=== PATIENT | male | born 1965 | race Two or more races ===

== ENCOUNTER → 2018-04-15 | Outpatient (CLI) | payer BC ==
[2018-04-15 09:05] VITALS: BP 124/76
[2018-04-15 10:04] VITALS: BP 112/75
== END | disposition home or self-care (01) ==
LOC: CARDMN 08:50
PROVIDERS: ATTEND Internal Medicine Cardiovascular Disease
DX: R00.1 Bradycardia, unspecified (principal); R07.89 Other chest pain
CPT/HCPCS: 93017; 93350